=== PATIENT | male | born 1960 | race Asian ===

== ENCOUNTER 2017-09-21 14:08 | Emergency (ER) | payer BC ==
[~2017-09-21] VITALS: Ht 185.4 cm; Wt 85.9 kg
[2017-09-21 14:10] VITALS: BP 131/75
[2017-09-21] MEDS ORDERED: LORazepam 1MG TABLET ONE (14:58)
[2017-09-21] MEDS ORDERED: PLEASE ENTER ALLERGIES MC SCH (15:00)
[2017-09-21] MEDS ORDERED: LORazepam 1MG TABLET PO ONE (15:00)
== END 2017-09-21 15:08 | disposition home or self-care (01) ==
LOC: ED 14:45
DX: F41.1 Generalized anxiety disorder (principal); I10 Essential (primary) hypertension
CPT/HCPCS: 99284